=== PATIENT | female | born 1980 | race Two or more races ===

== ENCOUNTER → 2024-05-18 | Outpatient (CLI) | payer MEDICAID, SELFPAY ==
--- NOTE | 2024-05-18 07:57 | XR_ITS ---
Examination: Abdomen sonogram, complete Date and time of exam: May 10, 2024 0801 hours INDICATIONS: Right lower abdominal pain beginning one week ago. Technique: Multiple real-time grayscale transabdominal sonographic images of the abdomen have been obtained. Findings: Normal gallbladder Normal common bile duct 0.3 cm Pancreatic head 2.4 cm Aorta not enlarged Liver 17.4 cm fatty infiltration 10 mm calcification in the right lobe Normal hepatopedal portal venous flow Patent IVC Right kidney 10.9 x 4.4 x 4.7 cm cortex 1.2 cm Left kidney 12.9 x 5.0 x 4.8 cm cortex 1.5 cm Mild bilateral renal parenchymal scar formation No hydronephrosis Spleen 10.4 cm IMPRESSION: Normal gallbladder Mild hepatomegaly fatty liver Mild bilateral renal parenchyma scar formation No hydronephrosis
== END | disposition home or self-care (01) ==
LOC: CDIM 07:26
PROVIDERS: PCP Nurse Practitioner Family; Referring Provider Nurse Practitioner Family; Visit Provider Nurse Practitioner Family
DX: K76.0 Fatty (change of) liver, not elsewhere classified (principal); N28.89 Other specified disorders of kidney and ureter
CPT/HCPCS: 76700

== ENCOUNTER 2024-08-31 08:05 | Day surgery (SDC) | payer MEDICAID, SELFPAY ==
[2024-08-31] VITALS (9 sets, daily range): BP systolic 99–121; BP diastolic 62–92; PULSE 52–57; RESP 12–18; TEMP 36.1–36.6; O2SAT 96–100; BMI 32.7
[2024-08-31 09:53] LABS: HCG Qualitative,Urine Negative
[2024-08-31] MEDS: SODIUM CHLORIDE 0.9% 500 ML 500 ML 20 ML IV (10:52)
[2024-08-31] MEDS: MIDAZOLAM INJ 1 MG/ML VIAL 2 ML (ASD USE ONLY) 2 MG IV (10:53)
[2024-08-31] MEDS: DiphenhydrAMINE INJ 50 MG/ML VIAL 25 MG IV (10:53)
[2024-08-31] MEDS: fentaNYL CIT INJ 50 mCg/ML AMP 2ML (ASD USE ONLY) IV (10:53)
== END 2024-08-31 12:10 | disposition home or self-care (01) ==
PROVIDERS: PCP Nurse Practitioner Family; Referring Provider Internal Medicine Gastroenterology; Visit Provider Internal Medicine Gastroenterology
PROC: (CPT 43239; principal; 2024-08-31 08:45)
DX: K31.7 Polyp of stomach and duodenum (principal); K29.50 Unspecified chronic gastritis without bleeding; K44.9 Diaphragmatic hernia without obstruction or gangrene; Z90.3 Acquired absence of stomach [part of]
CPT/HCPCS: 43251; 43239; 81025; A4649; J1200; J2250; J3010; J7040

== ENCOUNTER 2024-09-02 08:10 | Day surgery (SDC) | payer MEDICAID, SELFPAY ==
[2024-09-01 11:39] VITALS: BMI 32.7
[2024-09-02] VITALS (10 sets, daily range): BP systolic 105–128; BP diastolic 67–79; PULSE 48–58; RESP 10–24; TEMP 36.1–36.5; O2SAT 99–100
[2024-09-02] MEDS: SODIUM CHLORIDE 0.9% 500 ML 500 ML 20 ML IV (11:52)
[2024-09-02] MEDS: MIDAZOLAM INJ 1 MG/ML VIAL 2 ML (ASD USE ONLY) 2 MG IV (11:53)
[2024-09-02] MEDS: fentaNYL CIT INJ 50 mCg/ML AMP 2ML (ASD USE ONLY) IV (11:53)
[2024-09-02] MEDS: DiphenhydrAMINE INJ 50 MG/ML VIAL 25 MG IV (11:53)
[2024-09-02] MEDS: SIMETHICONE 40 MG/0.6 ML ORAL SYRINGE PO (12:04)
== END 2024-09-02 13:00 | disposition home or self-care (01) ==
PROVIDERS: PCP Nurse Practitioner Family; Referring Provider Internal Medicine Gastroenterology; Visit Provider Internal Medicine Gastroenterology
PROC: 0DBE8ZX Excision of Large Intestine, Via Natural or Artificial Opening Endoscopic, Diagnostic (ICD-10-PCS; CPT 45380; principal; 2024-09-02 09:45)
DX: K64.8 Other hemorrhoids (principal)
CPT/HCPCS: 45380; J1200; J2250; J3010; J7040; A9270